=== PATIENT | male | born 1935 | race Caucasian/White ===

== ENCOUNTER 2016-06-28 09:21 | Day surgery (SDC) | payer MEDICARE, MEDICAID ==
[2016-06-28] MEDS ORDERED: Lactated Ringers 1,000 ML IV SCH (09:30)
[2016-06-28] MEDS ORDERED: Lidocaine 1% 20 ML MDV INJECT ONE (10:50)
[2016-06-28] MEDS ORDERED: Propofol 200 MG/20 ML SDV IV ONE (11:00)
[2016-06-28] MEDS ORDERED: Lidocaine 2% 100 MG/5 ML Syringe IVPUSH ONE (11:00)
[2016-06-28] MEDS ORDERED: Bupivacaine 0.5% 30 ML SDV ONE (11:23)
[2016-06-28] MEDS ORDERED: Lidocaine 1% 20 ML MDV ONE (11:23)
[2016-06-28] MEDS ORDERED: Acetaminophen/HYDROcodone 325-5 MG Tab PO PRN (11:49)
--- NOTE | 2016-06-28 11:54 | PCM.OPNOTE ---
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
--- NOTE | 2016-06-28 12:23 | OR ---
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 INDICATIONS FOR PROCEDURE: This is an 80-year-old white male who has had an 8- week history of a mass on the proximal phalanx of his right index finger. It has grown rapidly over the past 6 weeks. 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 He was offered and accepted excisional biopsy to control and remove this fungating mass for twilight purposes underlying of more leisurely definitive evaluation for definitive treatment. DESCRIPTION OF OPERATION: In the preoperative area, the wound was prepped in the usual sterile manner and 8 mL of 1% lidocaine was used to create a digital block by infiltrating along the dorsum and lateral aspects of the index finger and its base. This was found approximately 25 minutes before the case. The patient was then taken to the recovery area into the operating room where after an IV sedation was administered, he was prepped and draped in the usual sterile manner. More local at this time, mixture of 1% lidocaine with epinephrine, 0.5% bupivacaine was used to infiltrate the base to ensure excellent anesthesia. An elliptical incision was carried out and the wound was excised. The specimen was passed off the field. Minimal marginal approximately 2 mm was obtained, horizontal mattress sutures of 3-0 nylon were used to bring the skin together and then some interrupted simple sutures of 3-0 nylon were also used to close the skin. Aquacel Ag was placed over the wound itself and then the wound was dressed with Kerlix and then tube gauze. The patient was taken to recovery in good condition. /[id number] /MODL
[2016-06-28 13:33] VITALS: BP 154/78
== END 2016-06-28 12:50 | disposition home or self-care (01) ==
LOC: FB.SDS 09:21
PROVIDERS: ATTEND Surgery
PROC: 0JBJ0ZZ Excision of Right Hand Subcutaneous Tissue and Fascia, Open Approach (ICD-10-PCS; principal; 2016-06-28)
DX: C4A.61 Merkel cell carcinoma of right upper limb, including shoulder (principal); E11.319 Type 2 diabetes mellitus with unspecified diabetic retinopathy without macular edema; Z79.84 Long term (current) use of oral hypoglycemic drugs; E78.5 Hyperlipidemia, unspecified; I10 Essential (primary) hypertension; E66.9 Obesity, unspecified; M17.0 Bilateral primary osteoarthritis of knee; I25.10 Atherosclerotic heart disease of native coronary artery without angina pectoris; G20 Parkinson's disease; Z96.1 Presence of intraocular lens; Z79.82 Long term (current) use of aspirin; Z79.899 Other long term (current) drug therapy
CPT/HCPCS: 01810; 11100; 82962; 88307; J2704; J7120